=== PATIENT | female | born 1940 | race Caucasian/White ===

== ENCOUNTER 2021-05-03 15:31 | Emergency (ER) | payer MEDICARE, BC ==
[2021-05-03] MEDS ORDERED: PERCOCET 7.5-31 EACH PO (17:12)
== END 2021-05-03 18:05 | disposition home or self-care (01) ==
LOC: ER1 15:31
DX: S42.251A Displaced fracture of greater tuberosity of right humerus, initial encounter for closed fracture (principal); S42.291A Other displaced fracture of upper end of right humerus, initial encounter for closed fracture; E11.9 Type 2 diabetes mellitus without complications; I10 Essential (primary) hypertension; Z90.710 Acquired absence of both cervix and uterus; W01.0XXA Fall on same level from slipping, tripping and stumbling without subsequent striking against object, initial encounter
CPT/HCPCS: 73030; 99283

== ENCOUNTER 2021-11-06 17:40 | Inpatient (IN) | payer MEDICARE, BC ==
[~2021-11-06] VITALS: Ht 154.9 cm; Wt 68.0 kg
[~2021-11-06 17:40] MED LIST: PERCOCET 7.5-31 EACH PO
[2021-11-06 19:18] LABS: HEMOGLOBIN 16.5 gm/dl (12.3-15.3); RED BLOOD COUNT 4.98 M/UL (4.00-5.10); WHITE BLOOD COUNT 9.7 K/UL (4.5-11.0)
[2021-11-06 22:02] LABS: BUN/CREATININE RATIO 24 (0-10)
[2021-11-07] MEDS ORDERED: BUPROPION XL150 MG PO (10:46)
[2021-11-07] MEDS ORDERED: LISINOPRIL40 MG PO (10:46)
[2021-11-07] MEDS ORDERED: ZOCOR40 MG PO (10:47)
[2021-11-07] MEDS ORDERED: TOUJEO MAX300 UNIT/1 SQ (10:47)
[2021-11-07] MEDS ORDERED: NEURONTIN300 MG PO (10:47)
[2021-11-07] MEDS ORDERED: METOPROLOL SUCC25 MG PO (10:47)
[2021-11-07] MEDS ORDERED: METFORMIN HCL1000 MG PO (10:48)
[2021-11-07] MEDS ORDERED: VITAMIN D3125 MCG PO (10:48)
[2021-11-07] MEDS ORDERED: FISH OIL 1,0001 EAC1 PO (10:48)
[2021-11-07] MEDS ORDERED: PRESERVISION A1 EAC1 PO (10:49)
[2021-11-08 05:10] LABS: HEMOGLOBIN 15.2 gm/dl (12.3-15.3); RED BLOOD COUNT 4.69 M/UL (4.00-5.10); WHITE BLOOD COUNT 9.1 K/UL (4.5-11.0)
[2021-11-08 05:27] LABS: BUN/CREATININE RATIO 33 (0-10)
[2021-11-08] MEDS ORDERED: ASPIRIN EC81 MG PO (14:05)
[2021-11-08] MEDS ORDERED: DECADRON6 MG PO (14:05)
--- NOTE | 2021-11-08 16:56 | NUR ---
LAB VALUE WDL SO PATIENT DISCHARGED HOME PER MD ORDER.
== END 2021-11-08 17:07 | disposition home or self-care (01) | DRG 177 ==
LOC: ER1 17:40 → CDU 11-07 02:48 → MED SURG 4 11-07 02:48
PROVIDERS: Family Medicine; ADMIT Internal Medicine
PROC: 8E0ZXY6 Isolation (ICD-10-PCS; principal; 2021-11-07)
PROC: 3E0333Z Introduction of Anti-inflammatory into Peripheral Vein, Percutaneous Approach (ICD-10-PCS; 2021-11-07)
PROC: XW033E5 Introduction of Remdesivir Anti-infective into Peripheral Vein, Percutaneous Approach, New Technology Group 5 (ICD-10-PCS; 2021-11-07)
DX: U07.1 COVID-19 (principal); G93.41 Metabolic encephalopathy; J12.82 Pneumonia due to coronavirus disease 2019; J96.01 Acute respiratory failure with hypoxia; I10 Essential (primary) hypertension; E11.9 Type 2 diabetes mellitus without complications; R41.0 Disorientation, unspecified; F03.90 Unspecified dementia, unspecified severity, without behavioral disturbance, psychotic disturbance, mood disturbance, and anxiety; E78.5 Hyperlipidemia, unspecified; E86.0 Dehydration; Z90.710 Acquired absence of both cervix and uterus; Z98.890 Other specified postprocedural states; Z79.899 Other long term (current) drug therapy; Z79.82 Long term (current) use of aspirin; Z79.4 Long term (current) use of insulin
CPT/HCPCS: 36415; 36600; 70450; 70496; 70498; 71045; 80048; 80053; 81001; 82550; 82553; 82803; 82962; 83605; 83735; 83874; 84100; 84132; 84484; 85025; 93005; 96372; 96374; 96375; 96376; 97116; 97161; 99285; J0248; J1100; J2405; J3475; J7030; Q9967; U0002

== ENCOUNTER 2021-11-20 20:19 | Emergency (ER) | payer MEDICARE, BC ==
[~2021-11-20 20:19] MED LIST changes: +ASPIRIN EC81 MG PO; +BUPROPION XL150 MG PO; +DECADRON6 MG PO; +FISH OIL 1,0001 EAC1 PO; +LISINOPRIL40 MG PO; +METFORMIN HCL1000 MG PO; +METOPROLOL SUCC25 MG PO; +NEURONTIN300 MG PO; +PRESERVISION A1 EAC1 PO; +TOUJEO MAX300 UNIT/1 SQ; +VITAMIN D3125 MCG PO; +ZOCOR40 MG PO
[2021-11-20 21:01] LABS: HEMOGLOBIN 13.5 gm/dl (12.3-15.3); RED BLOOD COUNT 4.16 M/UL (4.00-5.10); WHITE BLOOD COUNT 11.9 K/UL (4.5-11.0)
[2021-11-20 21:41] LABS: BUN/CREATININE RATIO 28 (0-10)
[2021-11-21] MEDS ORDERED: CEPHALEXIN500 M1 PO (03:14)
== END 2021-11-21 04:50 | disposition home or self-care (01) ==
LOC: ER1 20:19
PROVIDERS: Emergency Medicine
DX: U07.1 COVID-19 (principal); E11.40 Type 2 diabetes mellitus with diabetic neuropathy, unspecified; N39.0 Urinary tract infection, site not specified; E83.42 Hypomagnesemia; E86.0 Dehydration
CPT/HCPCS: 0240U; 51701; 70450; 80048; 81001; 82550; 82553; 83605; 83735; 84484; 85025; 87040; 93005; 96374; 96375; 96376; 99285; J0696; J3475

== ENCOUNTER → 2021-12-15 | Outpatient (CLI) | payer MEDICARE, BC ==
[~2021-12-15] MED LIST changes: +CEPHALEXIN500 M1 PO
== END ==
LOC: MRI 13:53
DX: R29.90 Unspecified symptoms and signs involving the nervous system (principal); R93.0 Abnormal findings on diagnostic imaging of skull and head, not elsewhere classified
CPT/HCPCS: 70553; A9577

== ENCOUNTER 2022-01-17 16:33 | Emergency (ER) | payer MEDICARE, BC ==
[2022-01-17 19:19] LABS: HEMOGLOBIN 11.9 gm/dl (12.3-15.3); RED BLOOD COUNT 3.77 M/UL (4.00-5.10); WHITE BLOOD COUNT 12.5 K/UL (4.5-11.0)
[2022-01-17 19:29] LABS: BUN/CREATININE RATIO 44 (0-10)
== END 2022-01-17 22:05 | disposition home or self-care (01) ==
LOC: ER1 16:33
PROVIDERS: Emergency Medicine
DX: S01.01XA Laceration without foreign body of scalp, initial encounter (principal); E11.9 Type 2 diabetes mellitus without complications; I10 Essential (primary) hypertension; Z90.710 Acquired absence of both cervix and uterus; Z20.822 Contact with and (suspected) exposure to COVID-19; E11.65 Type 2 diabetes mellitus with hyperglycemia; N28.9 Disorder of kidney and ureter, unspecified; W20.8XXA Other cause of strike by thrown, projected or falling object, initial encounter; Y93.9 Activity, unspecified
CPT/HCPCS: 70450; 71045; 72125; 80053; 81001; 82550; 82553; 84484; 85025; 90471; 90715; 93005; 99284; U0002

== ENCOUNTER 2022-03-04 17:34 | Inpatient (IN) | payer MEDICARE, BC ==
[~2022-03-04] VITALS: Ht 154.9 cm; Wt 69.4 kg
[~2022-03-04 17:34] MED LIST changes: -BUPROPION XL150 MG PO; +WELLBUTRIN XL300 MG PO
[2022-03-04 20:06] LABS: HEMOGLOBIN 10.6 gm/dl (12.3-15.3); RED BLOOD COUNT 3.61 M/UL (4.00-5.10); WHITE BLOOD COUNT 9.8 K/UL (4.5-11.0)
[2022-03-04 20:48] LABS: BUN/CREATININE RATIO 22 (0-10)
[2022-03-05] MEDS ORDERED: PRIMIDONE50 MG PO (10:13)
[2022-03-05] MEDS ORDERED: ONDANSETRON HCL4 MG PO (10:14)
[2022-03-05] MEDS ORDERED: CELECOXIB200 MG PO (10:14)
[2022-03-05] MEDS ORDERED: METOPROLOL SUCC50 MG PO (10:15)
[2022-03-05] MEDS ORDERED: TYLENOL 8 HOUR650 MG PO (10:16)
[2022-03-05 14:42] LABS: HEMOGLOBIN 10.5 gm/dl (12.3-15.3); RED BLOOD COUNT 3.59 M/UL (4.00-5.10); WHITE BLOOD COUNT 8.7 K/UL (4.5-11.0)
[2022-03-05 15:04] LABS: BUN/CREATININE RATIO 15 (0-10)
[2022-03-06 03:28] LABS: HEMOGLOBIN 11.4 gm/dl (12.3-15.3); RED BLOOD COUNT 3.92 M/UL (4.00-5.10)
[2022-03-06 04:46] LABS: BUN/CREATININE RATIO 23 (0-10)
[2022-03-06 07:10] LABS: VITAMIN D, 25-HYDROXY 11.6 ng/mL (30.0-100.0)
[2022-03-06 08:12] LABS: CORTISOL 9.2 ug/dL (.)
[2022-03-07 07:03] LABS: HEMOGLOBIN 10.1 gm/dl (12.3-15.3); WHITE BLOOD COUNT 8.4 K/UL (4.5-11.0)
[2022-03-07 07:04] LABS: RED BLOOD COUNT 3.5 M/UL (4.00-5.10)
[2022-03-07 07:30] LABS: BUN/CREATININE RATIO 26 (0-10)
[2022-03-08 06:25] LABS: RED BLOOD COUNT 3.47 M/UL (4.00-5.10)
[2022-03-08 07:07] LABS: BUN/CREATININE RATIO 34 (0-10)
[2022-03-09 06:23] LABS: HEMOGLOBIN 10.3 gm/dl (12.3-15.3); RED BLOOD COUNT 3.58 M/UL (4.00-5.10); WHITE BLOOD COUNT 6.4 K/UL (4.5-11.0)
[2022-03-09 06:52] LABS: BUN/CREATININE RATIO 33 (0-10)
[2022-03-10] MEDS ORDERED: PERCOCET 5/325 T1 EA PO (12:43)
[2022-03-10] MEDS ORDERED: ENOXAPARIN40 MG/0.4 SC (12:43)
[2022-03-10] MEDS ORDERED: FAMOTIDINE20 MG PO (12:43)
[2022-03-10] MEDS ORDERED: CYANOCOBAL1000 MCG/1 SC (12:43)
[2022-03-10] MEDS ORDERED: VITAMIN D325 MCG PO (12:43)
== END 2022-03-10 23:20 | DRG 481 ==
LOC: ER1 17:34 → MED SURG 4 20:49 → CDU 20:49 → MED SURG 4 23:53
PROVIDERS: Internal Medicine; Orthopaedic Surgery; Preventive Medicine Occupational Medicine; ADMIT Internal Medicine
PROC: 0QS606Z Reposition Right Upper Femur with Intramedullary Internal Fixation Device, Open Approach (ICD-10-PCS; principal; 2022-03-05 15:30)
DX: S72.041A Displaced fracture of base of neck of right femur, initial encounter for closed fracture (principal); E44.0 Moderate protein-calorie malnutrition; W19.XXXA Unspecified fall, initial encounter; I10 Essential (primary) hypertension; E53.8 Deficiency of other specified B group vitamins; Z66 Do not resuscitate; Z20.822 Contact with and (suspected) exposure to COVID-19; E55.9 Vitamin D deficiency, unspecified; E11.40 Type 2 diabetes mellitus with diabetic neuropathy, unspecified; E78.5 Hyperlipidemia, unspecified; E66.9 Obesity, unspecified; F32.A Depression, unspecified; F41.9 Anxiety disorder, unspecified; F03.90 Unspecified dementia, unspecified severity, without behavioral disturbance, psychotic disturbance, mood disturbance, and anxiety; D64.9 Anemia, unspecified; Z90.710 Acquired absence of both cervix and uterus; Z85.828 Personal history of other malignant neoplasm of skin; Z84.89 Family history of other specified conditions; Z68.30 Body mass index [BMI] 30.0-30.9, adult
CPT/HCPCS: 36415; 70450; 71045; 73502; 73522; 73552; 73700; 76000; 80048; 80053; 82533; 82550; 82553; 82607; 82746; 82962; 83036; 83540; 83550; 83690; 83735; 84100; 84439; 84443; 84484; 85025; 85027; 85045; 85610; 86140; 93005; 96374; 96375; 97110; 97110-GP-CQ; 97116; 97116-GP-CQ; 97161; 97166; 97530; 97530-GP-CQ; 99285; C1713; J0690; J1100; J1170; J1650; J2001; J2250; J2405; J2795; J3010; J3420; J3475; U0002